=== PATIENT | female | born 1955 | race Caucasian/White ===

== ENCOUNTER 2022-03-07 12:04 | Inpatient (IN) | payer MEDICARE ==
[~2022-03-07] VITALS: Ht 162.6 cm; Wt 73.1 kg
[2022-03-07] MEDS ORDERED: IV NS 0.9% 1,000 ML BAG IV ONE (12:30)
--- NOTE | 2022-03-07 12:35 | NUR ---
BIBS W/ C/O ABD PAIN; PT STATES THAT SHE WAS IN [place] OVER THE WEEKEND AND WAS TOLD SHE HAS PANCREATITIS AND WAS ONLY GIVEN MORPHINE. TO ER BED 10.
--- NOTE | 2022-03-07 12:45 | NUR ---
IV LINE STARTED; BLOOD DRAWN AND SENT TO LAB
--- NOTE | 2022-03-07 12:47 | NUR ---
PT TAKEN TO RADIOLOGY VIA RENÉE
[2022-03-07 12:52] LABS: BASOPHILS % (AUTO) 0.6 % (0.0-2.0); EOSINOPHILS % (AUTO) 1.1 % (0.0-6.0); HEMATOCRIT 33 % (33-45); HEMOGLOBIN 10.9 g/dL (11.5-14.8); LYMPHOCYTES # (AUTO) 1.3 K/uL (0.8-4.8); LYMPHOCYTES % (AUTO) 17.2 % (20.0-44.0); MEAN CORPUSCULAR HGB CONC 33 g/dl (31.0-36.0); MEAN CORPUSCULAR VOLUME 88 fL (82-100); MONOCYTES # (AUTO) 0.8 K/uL (0.1-1.30); NEUTROPHILS # (AUTO) 5.2 K/uL (1.8-8.9); NEUTROPHILS % (AUTO) 70.1 % (43.0-81.0); PLATELET COUNT (AUTO) 337 K/uL (150-450); RED BLOOD CELL COUNT(AUTO) 3.77 MIL/uL (4.0-5.2); WHITE BLOOD COUNT (AUTO) 7.4 K/uL (4.3-11.0)
[2022-03-07 13:06] LABS: BILIRUBIN,URINE LARGE (NEGATIVE); COLOR,URINE AMBER (YELLOW); LEUKOCYTE ESTERASE ,URINE NEGATIVE (NEGATIVE); NITRITE, URINE NEGATIVE (NEGATIVE); PROTEIN,URINE TRACE mg/dl (NEGATIVE); UGLUCOSE 100 MG/DL mg/dL (NEGATIVE)
[2022-03-07 13:06] LABS: CALCIUM, SERUM 9.7 mg/dL (8.5-10.1); CREATININE 0.5 mg/dL (0.6-1.3); POTASSIUM 3.2 mmol/L (3.5-5.1)
[2022-03-07 13:13] LABS: ALBUMIN 3.3 g/dL (3.4-5.0); BILIRUBIN,DIRECT 5.5 mg/dL (0.0-0.2); BILIRUBIN,TOTAL 6.6 mg/dL (0.2-1.0); TOTAL PROTEIN, SERUM 7.8 g/dL (6.4-8.2)
--- NOTE | 2022-03-07 13:15 | NUR ---
COVID SWAB COLLECTED AND SENT TO LAB
[2022-03-07 13:29] LABS: BACTERIA,URINE Few /HPF (None Seen); MUCUS,URINE Moderate /LPF (None Seen); RBC,URINE 0-2 /HPF (0-2); SQUAMOUS EPITHELIAL CELL,UR Few /HPF (None Seen); URINE AMORPHOUS URATE Moderate /HPF (None Seen); WBC,URINE 0-2 /HPF (0-3)
--- NOTE | 2022-03-07 13:40 | NUR ---
CALLED NURSING SUP REGARDING PT BED
[2022-03-07] MEDS ORDERED: TRAM50TA2 PO (13:41)
[2022-03-07] MEDS ORDERED: FAMO20TA8 PO (13:41)
[2022-03-07] MEDS ORDERED: LOSA100T31 PO (13:41)
[2022-03-07] MEDS ORDERED: NAPR-1192 PO (13:41)
[2022-03-07] MEDS ORDERED: OMEP20TA5 PO (13:41)
[2022-03-07] MEDS ORDERED: MAG HYDROX/AL HYDROX/SIMETH 30 ML UDC PO PRN (14:30)
[2022-03-07] MEDS ORDERED: ONDANSETRON HCL/PF 4 MG/2 ML VIAL IVP PRN (14:30)
[2022-03-07] MEDS ORDERED: MAGNESIUM HYDROXIDE 30 ML UDC PO PRN (14:30)
[2022-03-07] MEDS ORDERED: TRAMADOL HCL 50 MG TABLET PO PRN (14:30)
[2022-03-07] MEDS ORDERED: ACETAMINOPHEN 325 MG TABLET PO PRN (14:30)
[2022-03-07] MEDS ORDERED: ZOLPIDEM TARTRATE 5 MG TABLET PO PRN (14:30)
[2022-03-07] MEDS ORDERED: Z GUARD REMEDY 4 OZ OINT TP PRN (14:30)
[2022-03-07] MEDS ORDERED: MORPHINE SULFATE INJ 4 MG/ML DISP.SYRIN ONE (14:48)
[2022-03-07] MEDS: MORPHINE SULFATE INJ 2 MG/ML DISP.SYRIN IV PRN ×2 (14:49→23:33)
--- NOTE | 2022-03-07 15:20 | NUR ---
PT PICKED UP FOR MRI VIA WHEELCHAIR
--- NOTE | 2022-03-07 16:04 | NUR ---
ROOM 315-1
--- NOTE | 2022-03-07 19:09 | NUR ---
PT TRANSFERRED TO UNIT VIA [facility]. PT REPORT AND WARM HANDOFF GIVEN TO CATA VALLE.
--- NOTE | 2022-03-07 20:26 | NUR ---
MUSIC THEORY TEACHER NOTES: RECEIVED PATIENT AWAKE IN BED, BED IN LOW POSITION CALL LIGHTS WITHIN REACH, NO COMPLAIN OF PAIN AND DISCOMFORT AT THIS TIME, ON ROOM AIR SATURATING WELL, PATIENT IS A/OX4 ABLE TO MAKE NEEDS KNOWN, SKIN ASSESSMENT DONE, NO SKIN ISSUES HAS BEEN OBSERVED, INVENTORIES DONE, ORIENTED TO PLACE, REMIND TO USE THE CALL LIGHTS WHEN NEEDED ASSISTANCE, PATIENE KEPT CLEAN AND DRY ALL NEEDS MET WILL CONTINUE TO MONITOR.
[2022-03-07] MEDS: IV NS 0.9% 1,000 ML IV PRN (20:47)
--- NOTE | 2022-03-07 22:17 | NUR ---
RN NOTES: PATIENT COMPLAIN OF ITCHINESS FROM HEAD AND ALL OVER HER BODY, NOTIFY DR PEREZ AND ORDER BENADRYL 25MG PO Q6H NOTED AND CARRY OUT
[2022-03-07 22:39] VITALS: BP 136/76
[2022-03-07] MEDS: diphenhydrAMINE HCL ELIX 25 MG/10 ML UDC PO PRN (23:32)
--- NOTE | 2022-03-07 23:45 | NUR ---
RN NOTES: PATIENT WAS NOTED WITH POTASSIUM LEVEL OF 3.2 AT THE MOST RECENT LABS AT ER, NO MEDICATION WAS GIVEN TO REPLENISH NOTIFY DR PEREZ AND ORDER 40MEQ PO ONE TIME NOTED AND CARRY OUT.
[2022-03-08] MEDS ORDERED: POTASSIUM CHLORIDE 20 MEQ TAB.PRT.SR PO ONE
--- NOTE | 2022-03-08 06:29 | NUR ---
RN CLOSING NOTES: PATIENT SLEEP IN BED COMFORTABLY, AROUSABLE TO VERBAL STIMULI , BED IN LOW POSITION CALL LIGHTS WITHIN REACH, WITH IV LINE AT LAC#20 WITH ONGOING NSS@75ML/HR INFUSING WELL, NO COMPLAIN OF PAIN AND DISCOMFORT AT THIS TIME ON ROOM AIR SATURATING WELL, PATIENT IS A/OX4 ABLE TO MAKE NEEDS KNOWN, KEPT CLEAN AND DRY, ALL NEEDS MET ENDORSE TO INCOMING SHIFT.
[2022-03-08 06:57] LABS: BASOPHILS # (AUTO) 0.1 K/uL (0.0-0.2); BASOPHILS % (AUTO) 0.9 % (0.0-2.0); EOSINOPHILS % (AUTO) 1.4 % (0.0-6.0); HEMATOCRIT 29 % (33-45); HEMOGLOBIN 9.6 g/dL (11.5-14.8); LYMPHOCYTES # (AUTO) 1.2 K/uL (0.8-4.8); LYMPHOCYTES % (AUTO) 19.5 % (20.0-44.0); MEAN CORPUSCULAR HGB CONC 33 g/dl (31.0-36.0); MEAN CORPUSCULAR VOLUME 88 fL (82-100); MONOCYTES # (AUTO) 0.7 K/uL (0.1-1.30); MONOCYTES % (AUTO) 10.6 % (2.0-12.0); NEUTROPHILS # (AUTO) 4.2 K/uL (1.8-8.9); NEUTROPHILS % (AUTO) 67.6 % (43.0-81.0); PLATELET COUNT (AUTO) 280 K/uL (150-450); RED BLOOD CELL COUNT(AUTO) 3.33 MIL/uL (4.0-5.2); WHITE BLOOD COUNT (AUTO) 6.3 K/uL (4.3-11.0)
--- NOTE | 2022-03-08 07:30 | NUR ---
RN receiving report. AOx4, patent stable, all precautions taken, call light and table within reach, bed at lowest position. Introduced myself to the patient. Will continue to monitor throughout shift
[2022-03-08 07:35] LABS: ALBUMIN 2.4 g/dL (3.4-5.0); CALCIUM, SERUM 8.5 mg/dL (8.5-10.1); CREATININE 0.8 mg/dL (0.6-1.3); MAGNESIUM 2.1 mg/dL (1.8-2.4); PHOSPHORUS 2.8 mg/dL (2.5-4.9); POTASSIUM 3.6 mmol/L (3.5-5.1)
[2022-03-08 08:00] VITALS: BP 131/66
[2022-03-08] MEDS: LOSARTAN POTASSIUM 50 MG TABLET PO SCH (08:16)
[2022-03-08] MEDS: PANTOPRAZOLE 40 MG VIAL IV SCH (08:16)
[2022-03-08] MEDS: diphenhydrAMINE HCL ELIX 25 MG/10 ML UDC PO PRN (08:27)
[2022-03-08] MEDS: MORPHINE SULFATE INJ 2 MG/ML DISP.SYRIN IV PRN ×2 (12:30→21:22)
[2022-03-08 16:00] VITALS: BP 149/76
--- NOTE | 2022-03-08 18:45 | NUR ---
RN Closing Notes PT AOx4, VSS, pt upset ERCP was rescheduled. Monitored pt throughout shift, patient remained safe throughout shift, administerd medications as scheduled. All safety precautions taken during shift, call light and table within reach, bed at lowest position.
[2022-03-08] MEDS: IV NS 0.9% 1,000 ML IV PRN (18:53)
--- NOTE | 2022-03-08 19:52 | NUR ---
MS RN OPENING NOTE PATIENT RECEIVED IN BED, A/OX4. AMBULATES. NO S/S OF APPARENT DISTRESS ON ROOM AIR. NO C/O PAIN AT THIS TIME. ON IV NS RUNNING @75ML/HR. ORIENTED AND ENCOURAGED WITH THE USE OF CALL LIGHT. SAFETY IN PLACE. FOR ERCP TOMORROW-- PATIENT MADE AWARE OF NPO STATUS @2300, PATIENT ACKNOWLEDGED. WILL CONTINUE WITH PATIENT'S PLAN OF CARE.
--- NOTE | 2022-03-08 20:00 | NUR ---
REFUSED 2000 V/S
--- NOTE | 2022-03-08 21:17 | NUR ---
MS RN NOTE PATIENT SIGNED CONSENTS AT THIS TIME. REMINDED OF NPO STATUS STARTING 2300. PATIENT ACKNOWLEDGED. QUESTIONS ANSWERED.
--- NOTE | 2022-03-09 02:42 | NUR ---
MS RN NOTE PATIENT REQUESTING FOR BENADRYL AND HER BENADRYL ORDERED IS PO, PATIENT NPO FOR ERCP TOMORROW. MESSAGED ZIGZAG MACHINE OPERATOR DOCTOR TO GET ONE TIME ORDER OF BENADRYL IV. DANE LANDIN NP ORDERED BENADRYL 25MG IV ONCE. ORDER CARRIED OUT.
[2022-03-09] MEDS ORDERED: diphenhydrAMINE HCL 50 MG/ML VIAL IV ONE (03:00)
[2022-03-09] MEDS ORDERED: IOHEXOL 50 ML IV ONE (06:18)
[2022-03-09] MEDS ORDERED: IOHEXOL 0 ML IV ONE (06:18)
[2022-03-09] MEDS ORDERED: INDOMETHACIN 50 MG SUPP.RECT ONE ×2 (06:19)
[2022-03-09] MEDS ORDERED: ANESTHESIA TRAY IN PYXIS 1 EA TRAY MC ONE (06:21)
--- NOTE | 2022-03-09 06:25 | NUR ---
MS RN NOTE TAKEN DOWN BY OR AT THIS TIME. PATIENT IN STABLE CONDITION.
[2022-03-09] MEDS ORDERED: SCOPOLAMINE PATCH 1 MG/72HR TD ONE (06:50)
--- NOTE | 2022-03-09 07:29 | NUR ---
MS RN CLOSING NOTE REPORT GIVEN TO AMADOR FOR CONTINUITY OF CARE. NEEDS ATTENDED.
--- NOTE | 2022-03-09 07:30 | NUR ---
RN Receiving report. Received report form OR Nurse, unable to proceed with scheduled procedure since patients anatomy is different. PT AOx4, able to express her own concerns. Patient shows no signs of distress, asking for pain medication and benadryl. Will continue to monitor throughout shift. All safety precautions taken, call light and table within reach, bed at lowest position.
[2022-03-09] MEDS: MORPHINE SULFATE INJ 2 MG/ML DISP.SYRIN IV PRN ×2 (07:57→15:19)
[2022-03-09 08:00] VITALS: BP 135/79
[2022-03-09] MEDS: PANTOPRAZOLE 40 MG VIAL IV SCH (09:03)
[2022-03-09] MEDS: LOSARTAN POTASSIUM 50 MG TABLET PO SCH (09:03)
[2022-03-09 10:00] LABS: CALCIUM, SERUM 8.8 mg/dL (8.5-10.1); CREATININE 0.6 mg/dL (0.6-1.3); POTASSIUM 3.5 mmol/L (3.5-5.1)
[2022-03-09 10:07] LABS: ALBUMIN 2.6 g/dL (3.4-5.0); BILIRUBIN,TOTAL 2.1 mg/dL (0.2-1.0); TOTAL PROTEIN, SERUM 6.5 g/dL (6.4-8.2)
[2022-03-09] MEDS: diphenhydrAMINE HCL ELIX 25 MG/10 ML UDC PO PRN (10:16)
[2022-03-09] MEDS: IV NS 0.9% 1,000 ML IV PRN (13:59)
[2022-03-09 16:00] VITALS: BP 142/67
--- NOTE | 2022-03-09 18:54 | NUR ---
PT AOx4, able to experess concerns and needs. Pt remained stable throughout shift. Pt aware of discharge plan and pending transport to [facility]. All safety precautions taken, no incidents throughout shift.
--- NOTE | 2022-03-09 19:30 | NUR ---
MS RN OPENING NOTES: RECEIVED PATIENT AWAKE IN BED,BED IN LOW POSITION CALL LIGHTS WITHIN REACH, NO COMPLAIN OF PAIN AND DISCOMFORT AT THIS TIME, ON ROOM AIR SATURATING WELL, PATIENT IS A/OX4 ABLE TO MAKE NEEDS KNOWN, AMBULATORY, WITH IV LINE AT RIGHT WRIST WITH ONGOING NSS@75ML/HR INFUSING WELL, PATIENT KEPT CLEAN AND DRY ALL NEEDS MET WILL CONTINUE TO MONITOR.
[2022-03-09 20:00] VITALS: BP 140/79
--- NOTE | 2022-03-10 07:30 | NUR ---
RN Receiving Report. PT AOx4, shows no signs of distress, currently IV is disconnected and no Fluids are running. Patients wants me to come back later " on an important phone call". Will come back and administer medications as prescribed. Will continue to monitor throughout shift and provide care and medications as ordered. Pt able to express her own concerns. All safety precautions taken, bed at lowest position, call light and and table within reach.
--- NOTE | 2022-03-10 07:48 | NUR ---
MS RN CLOSING NOTES: PATIENT SLEEP IN BED COMFORTABLY,A ROUSABLE TO VERBAL STIMULI, BED IN LOW POSITION CALL LIGHTS WITHIN REACH, NO COMPLAIN OF PAIN AND DISCOMFORT AT THIS TIME, ON ROOM AIR SATURATING WELL PATIENT IS A/OX4 ABLE TO MAKE NEEDS KNOWN, KEPT CLEAN AND DRY ALL NEEDS MET ENDORSE TO INCOMING SHIFT.
[2022-03-10 08:00] VITALS: BP 139/78
[2022-03-10] MEDS: PANTOPRAZOLE 40 MG VIAL IV SCH (10:43)
[2022-03-10] MEDS: LOSARTAN POTASSIUM 50 MG TABLET PO SCH (10:43)
[2022-03-10 16:00] VITALS: BP 169/78
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
--- NOTE | 2022-03-10 19:30 | NUR ---
RN OPENING NOTES RECEIVED PT IN BED, AWAKE. AOx4, ABLE TO MAKE NEEDS KNOWN. ON RA AND TOLERATING WELL. NO SOB NOTED. NO S/SX OF RESPIRATORY DISTRESS NOTED. IV ACCESS R WRIST #20 G RUNNING NS @ 75 ML/HR. PT COMPLAINING OF PAIN. SAFETY PRECAUTIONS IN PLACE: BED IN LOWEST, LOCKED POSITION, SIDERAILS UPx2, AND BRAKES ON. TABLE AND CALL LIGHT WITHIN REACH. WILL CONTINUE TO MONITOR.
[2022-03-10] MEDS: MORPHINE SULFATE INJ 2 MG/ML DISP.SYRIN IV PRN (19:43)
--- NOTE | 2022-03-10 19:43 | NUR ---
RN NOTES ADMINISTERED MORPHINE FOR PAIN PER MD ORDER. VS WNL.
--- NOTE | 2022-03-10 21:55 | NUR ---
[facility]. PER [facility], NO BED AVAILABLE FOR 24 HOURS. CHARGE NURSE, ROLANDA, MADE AWARE.
[2022-03-10] MEDS: IV NS 0.9% 1,000 ML IV PRN (22:17)
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
--- NOTE | 2022-03-11 04:40 | NUR ---
RN NOTES PT CAME TO NURSING STATION. MADE CHARGE NURSE AWARE THAT SHE WANTED TO SHOWER. CHARGE NURSE INFORMED PATIENT, "WE NEED AN ORDER FOR YOU TO SHOWER." PT BECAME UPSET BY THIS AND SAID "I TOOK A SHOWER 3 DAYS AGO. I DON'T NEED AN ORDER! IT'S MY PATIENT RIGHT TO SHOWER." REITERATED TO PATIENT THAT "SHE IS IN THE HOSPITAL AND WE NEED AN ORDER." PT STATED THAT SHE "THREW UP THREE TIMES LAST NIGHT AND WOKE UP IN A COLD SWEAT. THAT IT ADDS UP THAT SHE NEEDS TO SHOWER." BEGAN CRYING. RN SAW NO EPISODES OF EMESIS THROUGHOUT SHIFT. ALSO PROVIDED ZOFRAN WHEN PATIENT COMPLAINED OF NAUSEA. PROVIDED PT WITH TOILETRIES TO WASH HAIR IN SINK PER PATIENT REQUEST.
--- NOTE | 2022-03-11 05:27 | NUR ---
RN NOTES PT REQUESTED FEMININE PADS. BROUGHT PATIENT 2. PATIENT SAID "THESE ARE TOO BIG FOR MY CROTCH". WANTED SCISSORS TO CUT IT. EDUCATED PT THAT THIS WOULD IRRITATE SKIN. PT SAID "I RECEIVED SMALLER PADS DOWNSTAIRS." NO OTHER PADS AVAILABLE. PT MADE AWARE. DID NOT REPLY.
[2022-03-11] MEDS: MORPHINE SULFATE INJ 2 MG/ML DISP.SYRIN IV PRN ×3 (06:18→23:10)
--- NOTE | 2022-03-11 06:18 | NUR ---
RN NOTES ADMINISTERED MORPHINE FOR PAIN PER MD ORDER. VS WNL. ASKED PATIENT IF SHE NEEDED ANYTHING AND SHE SAID "NO, I AM OKAY."
--- NOTE | 2022-03-11 06:53 | NUR ---
RN CLOSING NOTES PT IN BED, AWAKE. AOx4, ABLE TO MAKE NEEDS KNOWN. ON RA AND TOLERATING WELL. NO SOB NOTED. NO S/SX OF RESPIRATORY DISTRESS NOTED. IV ACCESS R WRIST #22 G RUNNING NS @ 75 ML/HR. ALL ORDERS CARRIED OUT. ALL NEEDS MET. PT KEPT CLEAN AND DRY. TREATED PAIN AND NAUSEA DURING SHIFT. SAFETY PRECAUTIONS IN PLACE: BED IN LOWEST, LOCKED POSITION, SIDERAILS UPx2, AND BRAKES ON. TABLE AND CALL LIGHT WITHIN REACH. WILL ENDORSE TO ONCOMING SHIFT FOR BRANDEN.
--- NOTE | 2022-03-11 07:40 | NUR ---
RN OPENING NOTES RECEIVED PT IN BED, AWAKE. AOx4, ABLE TO MAKE NEEDS KNOWN. ON RA, TOLERATING WELL. NO SOB NOTED. NO S/SX OF RESPIRATORY DISTRESS NOTED. IV ACCESS R WRIST #22 G RUNNING NS @ 75 ML/HR. DISCUSSED PLAN OF CARE WITH PT, VERBALIZED UNDERSTANDING. SAFETY PRECAUTIONS IN PLACE: BED IN LOWEST, LOCKED POSITION, SIDERAILS UPx2. TABLE AND CALL LIGHT WITHIN REACH, WILL CONT TO MONITOR.
[2022-03-11 08:00] VITALS: BP 143/80
[2022-03-11] MEDS: LOSARTAN POTASSIUM 50 MG TABLET PO SCH (09:31)
[2022-03-11] MEDS: PANTOPRAZOLE 40 MG VIAL IV SCH (09:32)
[2022-03-11] MEDS: IV NS 0.9% 1,000 ML IV PRN (13:50)
[2022-03-11 16:00] VITALS: BP 146/83
--- NOTE | 2022-03-11 19:43 | NUR ---
RN OPENING NOTES RECEIVED PT IN BED AAOx4, ABLE TO VERBALIZE NEEDS.ON RM AIR TOLERATING WELL,NO SIGN SOB/DISTRESS NOTED. IV ACCESS R WRIST #22 G RUNNING NS @ 75 ML/HR. SAFETY PRECAUTIONS IN PLACE: BED IN LOWEST, LOCKED POSITION, SIDERAILS UPx2. TABLE AND CALL LIGHT WITHIN REACH, WILL CONTINUE TO MONITOR.
[2022-03-11 20:00] VITALS: BP 134/70
--- NOTE | 2022-03-11 20:08 | NUR ---
MS RN OPENING NOTES PT SITTING IN CHAIR AWAKE, AOx4, ABLE TO MAKE NEEDS KNOWN. ON RA, TOLERATING WELL. NO SOB NOTED. NO S/SX OF RESPIRATORY DISTRESS NOTED. IV ACCESS R WRIST #22 G RUNNING NS @ 75 ML/HR. DISCUSSED PLAN OF CARE WITH PT, VERBALIZED UNDERSTANDING. SAFETY PRECAUTIONS IN PLACE: BED IN LOWEST, LOCKED POSITION, SIDERAILS UPx2. TABLE AND CALL LIGHT WITHIN REACH, ENDORSED TO PM SHIFT.
[2022-03-11] MEDS: diphenhydrAMINE HCL ELIX 25 MG/10 ML UDC PO PRN (23:08)
[2022-03-12] MEDS: IV NS 0.9% 1,000 ML IV PRN (05:48)
--- NOTE | 2022-03-12 06:26 | NUR ---
RN CLOSING NOTES; PT IN BED RESTING AAOx4, ABLE TO VERBALIZE NEEDS.ON RM AIR TOLERATING WELL,NO SIGN SOB/DISTRESS NOTED.DUE MEDS GIVEN ORDERED.ALL NEEDS ATTENDED. IV ACCESS R WRIST #22 G RUNNING NS @ 75 ML/HR. SAFETY PRECAUTIONS IN PLACE: BED IN LOWEST, LOCKED POSITION, SIDERAILS UPx2. TABLE AND CALL LIGHT WITHIN REACH, WILL ENDORSED TO NEXT SHIFT.
[2022-03-12] MEDS ORDERED: PANTOPRAZOLE 40 MG TABLET.DR PO SCH (07:30)
--- NOTE | 2022-03-12 07:38 | NUR ---
RN OPENING NOTES: PT IN BED RESTING AAOx4, ABLE TO VERBALIZE NEEDS.ON RM AIR TOLERATING WELL, NO SIGN SOB/DISTRESS NOTED. AMBULATORY. DUE MEDS GIVEN ORDERED.ALL NEEDS ATTENDED. IV ACCESS R WRIST #22 G SALINE LOCKED FOR NOW. SAFETY PRECAUTIONS IN PLACE: BED IN LOWEST, LOCKED POSITION, SIDERAILS UPx2. TABLE AND CALL LIGHT WITHIN REACH. PATIENT IS FOR PENDING TRANSFER TO [facility]. WILL CONTINUE TO MONITOR DURING MY SHIFT.
[2022-03-12] MEDS: LOSARTAN POTASSIUM 50 MG TABLET PO SCH (08:22)
[2022-03-12 09:48] VITALS: BP 158/82
[2022-03-12 09:49] LABS: ALBUMIN 2.9 g/dL (3.4-5.0); BILIRUBIN,DIRECT 0.9 mg/dL (0.0-0.2); BILIRUBIN,TOTAL 1.3 mg/dL (0.2-1.0); TOTAL PROTEIN, SERUM 6.9 g/dL (6.4-8.2)
--- NOTE | 2022-03-12 09:55 | NUR ---
RN NOTES DR STEIN ORDERED TO HOLD IVF FOR NOW, ORDERED LASIX 40 MG IV ONCE FOR EDEMA. CARRIED OUT.
[2022-03-12] MEDS ORDERED: FUROSEMIDE 20 MG/2 ML VIAL IV ONE (10:00)
[2022-03-12] MEDS ORDERED: FUROSEMIDE 40 MG/4 ML VIAL IV ONE (10:00)
--- NOTE | 2022-03-12 10:45 | NUR ---
RN NOTES PATIENT REPORTS THAT SHE WANTED TO LEAVE FOR 2 HOURS TO FEED HER CAT AT HOME. INFORMED HER THAT'S GOING TO BE CONSIDERED AMA. REPORTED TO CHARGE NURSE MELANIA AND ADVISED TO HAVE CASE MANAGEMENT TALK TO HER WELL TO GIVE AN UPDATE. CALLED CM AND ENDORSED.
[2022-03-12 11:05] LABS: CALCIUM, SERUM 8.9 mg/dL (8.5-10.1); CREATININE 0.7 mg/dL (0.6-1.3); POTASSIUM 3.6 mmol/L (3.5-5.1)
[2022-03-12] MEDS: MORPHINE SULFATE INJ 2 MG/ML DISP.SYRIN IV PRN (13:27)
--- NOTE | 2022-03-12 13:38 | NUR ---
RN NOTES REQUESTED FOR PAIN MEDS, GIVEN 4 ML OF MORPHINE WILL CONTINUE TO REASSESS.
[2022-03-12 16:23] VITALS: BP 127/54
--- NOTE | 2022-03-12 19:30 | NUR ---
MS RN OPENING NOTE RECEIVED PATIENT SITTING ON HER BED, WITH HER CASUAL CLOTHES ON. NO S/S OF APPARENT DISTRESS ON ROOM AIR. PAIN TOLERABLE AT THIS TIME PER PATIENT. NO IV FLUIDS RUNNING AT THIS TIME. SAFETY IN PLACE. PATIENT IS GOING TO BE TRANSFERRED AT [facility] FOR HLOC. WILL CONTINUE WITH THE PLAN FOR PATIENT.
--- NOTE | 2022-03-12 19:34 | NUR ---
RN CLOSING NOTES: PT IN BED RESTING AAOx4, ABLE TO VERBALIZE NEEDS.ON RM AIR TOLERATING WELL, NO SIGN SOB/DISTRESS NOTED. AMBULATORY. PRN PAIN MEDS GIVEN ORDERED.ALL NEEDS ATTENDED. IV ACCESS R WRIST #22 G SALINE LOCKED FOR NOW. SAFETY PRECAUTIONS IN PLACE: BED IN LOWEST, LOCKED POSITION, SIDERAILS UPx2. TABLE AND CALL LIGHT WITHIN REACH. ENDORSED THE TRANSFER TO [facility] TO ONCOMING BEAUTY SALES ADVISOR.
[2022-03-12 20:00] VITALS: BP 148/81
--- NOTE | 2022-03-12 21:54 | NUR ---
RN DISCHARGING NOTE PATIENT PICKED UP BY EMT AT EXACTLY 2099. PATIENT IN STABLE CONDITION, A/OX4. AMBULATES WITH STEADY GAIT AND PAIN MANAGED WITH MEDICATION WHILE IN HOSPITAL. ID BAND DISCARDED. BELONGINGS SIGNED FOR, IV ACCESS KEPT ON R. WRIST #22G ENDORSED TO [facility]. REPORT GIVEN TO CATA CALDERON AT [facility] AT AROUND 2039. PER KVNG, DR. WOODARD IS THE ACCEPTING PROVIDER. PATIENT BEING TRANSFERRED FOR HLOC IN BED 8[facility] IN [facility]. PAPER WORKS SIGNED AND GIVEN TO PATIENT INCLUDING CD FOR HER CT SCAN. MEDICATION LISTS GIVEN IN THE PACKET. V/S FOLLOWS: 148/81, HR-61, RR-20, T-98.1, SATURATION 100%. PATIENT BROUGHT DOWN BY EMT AT AROUND 2110 VIA STRETCHER.
== END 2022-03-12 21:45 | disposition short-term general hospital (02) | DRG 444 ==
LOC: ER 12:11 → MED 18:52
PROVIDERS: ADMIT Nurse Practitioner Acute Care; ATTEND Internal Medicine
DX: K80.50 Calculus of bile duct without cholangitis or cholecystitis without obstruction (principal); K85.10 Biliary acute pancreatitis without necrosis or infection; E87.6 Hypokalemia; Z20.822 Contact with and (suspected) exposure to COVID-19; E78.00 Pure hypercholesterolemia, unspecified; Z88.8 Allergy status to other drugs, medicaments and biological substances; Z90.49 Acquired absence of other specified parts of digestive tract; Z79.899 Other long term (current) drug therapy; Z90.710 Acquired absence of both cervix and uterus; Z98.84 Bariatric surgery status; I10 Essential (primary) hypertension
CPT/HCPCS: 36415; 71045-TC; 74181-TC; 80048-TC; 80053-TC; 80061-TC; 80076-TC; 81001; 82150-TC; 83690-TC; 83735-TC; 83880; 84100-TC; 85025-TC; 85610-TC; 85730-TC; 87081-TC; C9113; C9803; G0378; J1200; J1940; J2270; J2405; J7030; Q0163; Q9967